=== PATIENT | male | born 1970 | race Asian ===

== ENCOUNTER 2021-04-14 22:42 | Emergency (ER) | payer BC ==
[~2021-04-14] VITALS: Ht 172.7 cm; Wt 70.3 kg
[2021-04-15] MEDS ORDERED: HYDROMORPHONE 1 MG/1 ML DISP.SYRIN IM ONE
[2021-04-15] MEDS ORDERED: ONDANSETRON ODT 4 MG TAB.RAPDIS SL ONE
[2021-04-15] MEDS ORDERED: ONDANSETRON ODT 4 MG TAB.RAPDIS ONE (00:02)
[2021-04-15] MEDS ORDERED: HYDROMORPHONE 1 MG/1 ML DISP.SYRIN ONE (00:02)
[2021-04-15] MEDS ORDERED: TDAP DIPH,PERTUSS,TET VAC/PF 0.5 ML DISP.SYRIN IM ONE ×2 (00:15→00:17)
[2021-04-15] MEDS ORDERED: SILVER SULFADIAZINE 1% CREAM 50 GM TP ONE (00:30)
[2021-04-15] MEDS ORDERED: HYDR-3980 PO (00:41)
[2021-04-15] MEDS ORDERED: SILV50CR32 TP (00:41)
[2021-04-15] MEDS ORDERED: SILVER SULFADIAZINE 1% CREAM 25 GM TUBE TP ONE (01:05)
--- NOTE | 2021-04-15 01:18 | NUR ---
Patient discharged to home in stable condition. Written and verbal after care instructions given. Patient verbalizes understanding of instructions. Stressed follow up or return to ER for worsening s/s.
[2021-04-15 01:33] VITALS: BP 132/78
== END 2021-04-15 01:18 | disposition home or self-care (01) ==
LOC: ER 22:46
DX: T23.241A Burn of second degree of multiple right fingers (nail), including thumb, initial encounter (principal); T24.201A Burn of second degree of unspecified site of right lower limb, except ankle and foot, initial encounter; X08.8XXA Exposure to other specified smoke, fire and flames, initial encounter; Y92.89 Other specified places as the place of occurrence of the external cause; U07.1 COVID-19; J20.8 Acute bronchitis due to other specified organisms; E11.42 Type 2 diabetes mellitus with diabetic polyneuropathy; Z79.4 Long term (current) use of insulin
CPT/HCPCS: 16025; 87426; 90471; 90715; 96372; 99284; J1170; Q0162

== ENCOUNTER 2022-06-17 10:49 | Emergency (ER) | payer BC ==
[~2022-06-17] VITALS: Ht 172.7 cm; Wt 71.7 kg
[~2022-06-17 10:49] MED LIST: HYDR-3980 PO; SILV50CR32 TP
[2022-06-17] MEDS ORDERED: IBUP-1955 PO (11:29)
[2022-06-17] MEDS ORDERED: IBUPROFEN 600 MG TABLET PO ONE (11:30)
[2022-06-17] MEDS ORDERED: IBUPROFEN 600 MG TABLET ONE (11:35)
== END 2022-06-17 11:44 | disposition home or self-care (01) ==
LOC: ER 10:49
DX: S09.90XA Unspecified injury of head, initial encounter (principal); W01.0XXA Fall on same level from slipping, tripping and stumbling without subsequent striking against object, initial encounter; Y92.89 Other specified places as the place of occurrence of the external cause; R51.9 Headache, unspecified; E11.42 Type 2 diabetes mellitus with diabetic polyneuropathy
CPT/HCPCS: A4663